=== PATIENT | female | born 1950 | race Caucasian/White ===

== ENCOUNTER 2017-12-04 16:33 | Inpatient (IN) | payer MEDICARE, OTHER ==
[~2017-12-04] VITALS: Ht 162.6 cm; Wt 42.6 kg
[2017-12-04] MEDS ORDERED: MAGNESIUM HYDROXIDE 30 ML UDC PO PRN (21:00)
[2017-12-04] MEDS ORDERED: MAG HYDROX/AL HYDROX/SIMETH 30 ML UDC PO PRN (21:00)
[2017-12-04] MEDS ORDERED: ESTR0.5T PO (21:38)
[2017-12-04] MEDS ORDERED: HYDR28OI2 TP (21:38)
[2017-12-04] MEDS ORDERED: CALC-20 PO (21:38)
[2017-12-04] MEDS ORDERED: GABA600T2 PO (21:38)
[2017-12-05 02:30] VITALS: BP 123/60
[2017-12-05 07:38] LABS: BASOPHILS % (AUTO) 0.3 % (0.0-2.0); EOSINOPHILS # (AUTO) 0.1 /CMM (0.0-0.7); EOSINOPHILS % (AUTO) 1.8 % (0.0-6.0); HEMATOCRIT 43 % (33-45); HEMOGLOBIN 14.6 g/dL (11.5-14.8); LYMPHOCYTES # (AUTO) 1.3 /CMM (0.8-4.8); LYMPHOCYTES % (AUTO) 19.9 % (20.0-44.0); MEAN CORPUSCULAR HEMOGLOBIN 33 PG (26.0-33.0); MEAN CORPUSCULAR HGB CONC 34 g/dl (31.0-36.0); MEAN CORPUSCULAR VOLUME 96 fL (82-100); MONOCYTES # (AUTO) 0.4 /CMM (0.1-1.30); MONOCYTES % (AUTO) 5.5 % (2.0-12.0); NEUTROPHILS # (AUTO) 4.8 /CMM (1.8-8.9); NEUTROPHILS % (AUTO) 72.5 % (43.0-81.0); PLATELET COUNT (AUTO) 215 /CMM (150-450); RED BLOOD CELL COUNT(AUTO) 4.47 MIL/uL (4.0-5.2); WHITE BLOOD COUNT (AUTO) 6.7 K/uL (4.3-11.0)
[2017-12-05 07:49] LABS: ALBUMIN 3.4 g/dL (3.4-5.0); BILIRUBIN,TOTAL 1.1 mg/dL (0.2-1.0); CALCIUM, SERUM 8.3 mg/dL (8.5-10.1); CHOLESTEROL 129 mg/dL (<200); CREATININE 0.7 mg/dL (0.6-1.3); HDL CHOLESTEROL 56 mg/dL (40-60); LDL 68 mg/dL (0-99); TOTAL PROTEIN, SERUM 6.3 g/dL (6.4-8.2); TRIGLYCERIDES 68 mg/dL (30-150)
[2017-12-05 07:59] LABS: POTASSIUM 2.8 mmol/L (3.5-5.1)
[2017-12-05] MEDS ORDERED: HYDROCORTISONE OINT 1% 28.35 GM TUBE TP PRN (08:00)
[2017-12-05 08:32] VITALS: BP 106/64
[2017-12-05] MEDS: POTASSIUM CHLORIDE 20 MEQ TAB.PRT.SR PO SCH ×3 (08:50→13:11)
[2017-12-05] MEDS: ESTRADIOL 1 MG TABLET PO SCH (08:50)
[2017-12-05] MEDS: CALCIUM CARB 600MG /VIT D 1 EACH TABLET PO SCH (08:50)
[2017-12-05 16:00] VITALS: BP 90/52
[2017-12-05 20:00] VITALS: BP 98/58
[2017-12-05] MEDS: GABAPENTIN 300 MG CAPSULE PO SCH (22:00)
[2017-12-06] MEDS: GABAPENTIN 300 MG CAPSULE PO SCH ×2 (00:01→21:31)
[2017-12-06 08:00] VITALS: BP 100/58
[2017-12-06] MEDS: BOOST PLUS FOOD-VANILLA 237 ML BOX PO SCH ×2 (08:52→16:15)
[2017-12-06] MEDS: CALCIUM CARB 600MG /VIT D 1 EACH TABLET PO SCH (08:52)
[2017-12-06] MEDS: ESTRADIOL 1 MG TABLET PO SCH (08:52)
[2017-12-06 11:50] LABS: CALCIUM, SERUM 8.8 mg/dL (8.5-10.1); CREATININE 0.8 mg/dL (0.6-1.3); POTASSIUM 3.4 mmol/L (3.5-5.1)
[2017-12-06 11:58] LABS: BILIRUBIN,TOTAL 0.6 mg/dL (0.2-1.0); MAGNESIUM 1.8 mg/dL (1.8-2.4); TOTAL PROTEIN, SERUM 5.8 g/dL (6.4-8.2)
[2017-12-06] MEDS ORDERED: POTASSIUM CHLORIDE 20 MEQ TAB.PRT.SR PO SCH (13:00)
[2017-12-06] MEDS ORDERED: MAGNESIUM OXIDE 400 MG TABLET PO ONE (15:30)
[2017-12-06] MEDS ORDERED: POTASSIUM CHLORIDE 20 MEQ TAB.PRT.SR PO ONE (15:30)
[2017-12-06 16:00] VITALS: BP 90/59
[2017-12-07 07:32] LABS: CREATININE 0.6 mg/dL (0.6-1.3)
[2017-12-07] MEDS: CALCIUM CARB 600MG /VIT D 1 EACH TABLET PO SCH (08:05)
[2017-12-07] MEDS: BOOST PLUS FOOD-VANILLA 237 ML BOX PO SCH ×3 (08:05→17:00)
[2017-12-07] MEDS: ESTRADIOL 1 MG TABLET PO SCH (08:07)
[2017-12-07 08:32] VITALS: BP 124/85
[2017-12-07] MEDS: ACETAMINOPHEN 325 MG TABLET PO PRN (09:05)
[2017-12-07 16:12] VITALS: BP 100/59
[2017-12-07 19:55] VITALS: BP 99/66
[2017-12-07] MEDS: GABAPENTIN 300 MG CAPSULE PO SCH (21:22)
[2017-12-08 08:00] VITALS: BP 100/52
[2017-12-08] MEDS: CALCIUM CARB 600MG /VIT D 1 EACH TABLET PO SCH (08:45)
[2017-12-08] MEDS: MEGESTROL ACETATE SUSP 400 MG/10 ML UDC PO SCH ×2 (08:45→16:30)
[2017-12-08] MEDS: ESTRADIOL 1 MG TABLET PO SCH (08:45)
[2017-12-08] MEDS: BOOST PLUS FOOD-VANILLA 237 ML BOX PO SCH ×3 (08:49→17:00)
[2017-12-08 16:00] VITALS: BP 96/59
[2017-12-08 19:47] VITALS: BP 109/57
[2017-12-08] MEDS: MIRTAZAPINE 15 MG TABLET PO SCH (21:45)
[2017-12-08] MEDS: GABAPENTIN 300 MG CAPSULE PO SCH (21:45)
[2017-12-09 08:00] VITALS: BP 100/58
[2017-12-09] MEDS: CALCIUM CARB 600MG /VIT D 1 EACH TABLET PO SCH (08:40)
[2017-12-09] MEDS: MEGESTROL ACETATE SUSP 400 MG/10 ML UDC PO SCH ×2 (08:40→16:06)
[2017-12-09] MEDS: ESTRADIOL 1 MG TABLET PO SCH (08:42)
[2017-12-09] MEDS: BOOST PLUS FOOD-VANILLA 237 ML BOX PO SCH ×3 (08:42→16:06)
[2017-12-09] MEDS: ACETAMINOPHEN 325 MG TABLET PO PRN (08:48)
[2017-12-09 16:09] VITALS: BP 102/54
[2017-12-09] MEDS: clonazePAM 0.5 MG TABLET PO PRN (19:52)
[2017-12-09 20:13] VITALS: BP 100/52
[2017-12-09] MEDS: TEMAZEPAM 7.5 MG CAPSULE PO PRN (20:55)
[2017-12-09] MEDS: MIRTAZAPINE 15 MG TABLET PO SCH (20:55)
[2017-12-09] MEDS: GABAPENTIN 300 MG CAPSULE PO SCH (20:55)
[2017-12-10 08:00] VITALS: BP 95/56
[2017-12-10] MEDS: BOOST PLUS FOOD-VANILLA 237 ML BOX PO SCH ×3 (08:00→16:37)
[2017-12-10] MEDS: CALCIUM CARB 600MG /VIT D 1 EACH TABLET PO SCH (08:23)
[2017-12-10] MEDS: ESTRADIOL 1 MG TABLET PO SCH (08:25)
[2017-12-10] MEDS: MEGESTROL ACETATE SUSP 400 MG/10 ML UDC PO SCH ×2 (08:26→16:37)
[2017-12-10] MEDS ORDERED: Z GUARD REMEDY 2 OZ OINT TP PRN (12:30)
[2017-12-10 16:00] VITALS: BP 100/63
[2017-12-10 19:57] VITALS: BP 95/54
[2017-12-10] MEDS: GABAPENTIN 300 MG CAPSULE PO SCH (21:42)
[2017-12-10] MEDS: MIRTAZAPINE 15 MG TABLET PO SCH (21:42)
[2017-12-11 08:00] VITALS: BP 101/60
[2017-12-11] MEDS: BOOST PLUS FOOD-VANILLA 237 ML BOX PO SCH ×3 (08:00→17:00)
[2017-12-11] MEDS: CALCIUM CARB 600MG /VIT D 1 EACH TABLET PO SCH (08:41)
[2017-12-11] MEDS: ESTRADIOL 1 MG TABLET PO SCH (08:41)
[2017-12-11] MEDS: MEGESTROL ACETATE SUSP 400 MG/10 ML UDC PO SCH ×2 (08:43→17:00)
[2017-12-11] MEDS: clonazePAM 0.5 MG TABLET PO PRN (12:18)
[2017-12-11 16:00] VITALS: BP 91/53
[2017-12-11 20:00] VITALS: BP 94/56
[2017-12-11] MEDS: MIRTAZAPINE 15 MG TABLET PO SCH (21:22)
[2017-12-11] MEDS: GABAPENTIN 300 MG CAPSULE PO SCH (21:22)
[2017-12-12] MEDS: BOOST PLUS FOOD-VANILLA 237 ML BOX PO SCH ×4 (08:00→16:29)
[2017-12-12] MEDS: MEGESTROL ACETATE SUSP 400 MG/10 ML UDC PO SCH ×3 (08:08→16:29)
[2017-12-12] MEDS: CALCIUM CARB 600MG /VIT D 1 EACH TABLET PO SCH (08:08)
[2017-12-12] MEDS: ESTRADIOL 1 MG TABLET PO SCH (08:09)
[2017-12-12 08:24] VITALS: BP 117/65
[2017-12-12] MEDS: clonazePAM 0.5 MG TABLET PO PRN (10:10)
[2017-12-12 15:19] VITALS: BP 99/59
[2017-12-12 20:00] VITALS: BP 100/62
[2017-12-12] MEDS: MIRTAZAPINE 15 MG TABLET PO SCH ×2 (21:04→21:22)
[2017-12-12] MEDS: GABAPENTIN 300 MG CAPSULE PO SCH (21:04)
[2017-12-12] MEDS: TEMAZEPAM 7.5 MG CAPSULE PO PRN (21:05)
[2017-12-13 08:00] VITALS: BP 94/52
[2017-12-13] MEDS: BOOST PLUS FOOD-VANILLA 237 ML BOX PO SCH ×3 (08:00→12:00)
[2017-12-13] MEDS: CALCIUM CARB 600MG /VIT D 1 EACH TABLET PO SCH (08:47)
[2017-12-13] MEDS: ESTRADIOL 1 MG TABLET PO SCH (08:47)
[2017-12-13] MEDS: MEGESTROL ACETATE SUSP 400 MG/10 ML UDC PO SCH (08:53)
[2017-12-13 16:00] VITALS: BP 105/61
[2017-12-13 16:01] VITALS: BP 105/61
[2017-12-13 20:00] VITALS: BP 106/64
[2017-12-13] MEDS: GABAPENTIN 300 MG CAPSULE PO SCH (21:00)
[2017-12-13] MEDS: MIRTAZAPINE 15 MG TABLET PO SCH (21:01)
[2017-12-14 08:00] VITALS: BP 100/53
[2017-12-14] MEDS: CALCIUM CARB 600MG /VIT D 1 EACH TABLET PO SCH (08:06)
[2017-12-14] MEDS: ESTRADIOL 1 MG TABLET PO SCH (10:34)
[2017-12-14] MEDS: ACETAMINOPHEN 325 MG TABLET PO PRN (11:35)
[2017-12-14] MEDS: clonazePAM 0.5 MG TABLET PO PRN (11:37)
[2017-12-14 16:00] VITALS: BP 95/51
[2017-12-14 20:04] VITALS: BP 109/67
[2017-12-14] MEDS: GABAPENTIN 300 MG CAPSULE PO SCH (21:38)
[2017-12-14] MEDS: MIRTAZAPINE 15 MG TABLET PO SCH (22:00)
[2017-12-15 08:00] VITALS: BP_SYST 145; BP_SYST 97; BP_DIAS 57; BP_DIAS 88
[2017-12-15] MEDS: ESTRADIOL 1 MG TABLET PO SCH (08:52)
[2017-12-15] MEDS: CALCIUM CARB 600MG /VIT D 1 EACH TABLET PO SCH (08:52)
[2017-12-15 16:00] VITALS: BP 123/63
[2017-12-15 19:33] VITALS: BP 104/60
[2017-12-15] MEDS ORDERED: MIRTAZAPINE 15 MG TABLET PO SCH (22:00)
[2017-12-15] MEDS: GABAPENTIN 300 MG CAPSULE PO SCH (22:00)
[2017-12-16 08:00] VITALS: BP 108/62
[2017-12-16] MEDS: CALCIUM CARB 600MG /VIT D 1 EACH TABLET PO SCH (08:34)
[2017-12-16] MEDS: ESTRADIOL 1 MG TABLET PO SCH (10:09)
== END 2017-12-16 13:20 | disposition home or self-care (01) | DRG 885 ==
LOC: GPS 20:17
PROVIDERS: ADMIT Psychiatry & Neurology Psychiatry; ATTEND Internal Medicine
DX: F33.2 Major depressive disorder, recurrent severe without psychotic features (principal); E43 Unspecified severe protein-calorie malnutrition; F23 Brief psychotic disorder; Z68.1 Body mass index [BMI] 19.9 or less, adult; R64 Cachexia; F41.9 Anxiety disorder, unspecified; E87.6 Hypokalemia; G62.9 Polyneuropathy, unspecified; M81.0 Age-related osteoporosis without current pathological fracture; Z90.49 Acquired absence of other specified parts of digestive tract; Z73.6 Limitation of activities due to disability
CPT/HCPCS: 36415; 80048-TC; 80053-TC; 80061-TC; 82746; 83735-TC; 85025-TC; 87081-TC; 97110-TC; 97116-TC; 97530-TC; A4606; Z7610